=== PATIENT | female | born 1950 | race Caucasian/White ===

== ENCOUNTER 2017-04-27 09:06 | Emergency (ER) | payer MEDICARE, OTHER ==
--- NOTE | 2017-04-27 09:25 | UC ---
Cardiac HPI - HPI Summary HPI Summary: Decrease fentynl dose from topical 75 mcg to 50 mcg two days ago---today got chest pain and sob after shower "I thought I was having a heart attack" - History of Current Complaint Chief Complaint: UCChestPain Stated Complaint: REACTION TO MEDICINE,JITTERY,LIGHT-HEADED Time Seen by Provider: 04/27/17 09:13 Hx Obtained From: Patient Onset/Duration: Sudden Onset, Lasting Hours, Other Timing: Constant Initial Severity: Moderate Current Severity: Mild Chest Pain Location: Mid Sternal Character: Fast, Heaviness, Pressure/Squeezing Aggravating Factor(s): Nothing Alleviating Factor(s): Rest, Spontaneous Resolution, Other Associated Signs & Symptoms: Positive: Chest Pain, Anxiety, Recent Stress, SOB - Allergy/Home Medications Allergies/Adverse Reactions: Allergies Allergy/AdvReac Type Severity Reaction Status Date / Time Amoxicillin Allergy Intermediate unkown Verified 04/27/17 09:28 CI Pigment Blue 63 Allergy Intermediate unkown Verified 04/27/17 09:29 [From Cymbalta] Ciprofloxacin [From Cipro] Allergy Intermediate unkown Verified 04/27/17 09:28 Duloxetine [From Cymbalta] Allergy Intermediate unkown Verified 04/27/17 09:29 Escitalopram [From Lexapro] Allergy Intermediate unkown Verified 04/27/17 09:27 Naproxen [From Anaprox] Allergy Intermediate Unknown Verified 04/27/17 09:30 Reaction Details Tramadol Allergy Intermediate Unknown Verified 04/27/17 09:30 Reaction Details Home Medications: Home Medications Diclofenac Sodium EC TAB* [Voltaren EC TAB*] 25 mg PO TID PRN 04/27/17 [History Confirmed 04/27/17] Fentanyl [Duragesic] 50 mcg TD DAILY WITH MEAL 04/27/17 [History Confirmed 04/27] Hydrochlorothiazide TAB* [Hydrodiuril TAB*] 25 mg PO DAILY 04/27/17 [History Confirmed 04/27/17] Lisinopril 10 mg PO DAILY 04/27/17 [History Confirmed 04/27/17] Metformin HCl 500 mg PO BID 04/27/17 [History Confirmed 04/27/17] PMH/Surg Hx/FS Hx/Imm Hx Previously Healthy: No Endocrine History: Diabetes Cardiovascular History: Hypertension - Surgical History Surgical History: Yes Surgery Procedure, Year, and Place: LOW BACK DISC SURG..X3 - Family History Known Family History: Positive: None - Social History Occupation: Unemployed Lives: Alone Alcohol Use: None Substance Use Type: None Smoking Status (MU): Never Smoked Tobacco Review of Systems Constitutional: Negative Skin: Negative Eyes: Negative ENT: Negative Respiratory: Shortness Of Breath Cardiovascular: Chest Pain Gastrointestinal: Negative Genitourinary: Negative Motor: Negative Neurovascular: Negative Musculoskeletal: Negative Neurological: Negative Psychological: Anxious Is Patient Immunocompromised?: No All Other Systems Reviewed And Are Negative: Yes Physical Exam Triage Information Reviewed: Yes Appearance: Well-Appearing, Pain Distress, Obese Vital Signs Reviewed: Yes Eye Exam: Normal Eyes: Positive: Conjunctiva Clear ENT Exam: Normal ENT: Positive: Normal ENT inspection, Hearing grossly normal, Pharynx normal. Negative: Trismus, Muffled voice, Hoarse voice, Dental tenderness Dental Exam: Normal Neck exam: Normal Neck: Positive: Supple, Nontender Respiratory Exam: Normal Respiratory: Positive: Chest non-tender, Lungs clear, Normal breath sounds, No respiratory distress, No accessory muscle use Cardiovascular Exam: Normal Cardiovascular: Positive: RRR, No Murmur, Pulses Normal, Brisk Capillary Refill Abdominal Exam: Normal Abdomen Description: Positive: No Organomegaly, Soft, Other: - chronic abdomen pain---difuse. Negative: Nontender Bowel Sounds: Positive: Present Musculoskeletal Exam: Normal Musculoskeletal: Positive: Strength Intact, ROM Intact, No Edema Neurological Exam: Normal Neurological: Positive: Alert, Muscle Tone Normal Psychological Exam: Normal Skin Exam: Normal Diagnostics - EKG Cardiac Rate: NL Cardiac Rhythm: Sinus: Normal Ectopy: None ST Segment: Normal - Assessment/Plan Course Of Treatment: rest, ekg, asprin, [place] [facility] [place] - Clinical Impression Provider Diagnoses: Chest pain - Physician Notifications Discussed Patient Care With: Renetta Yu Time Discussed With Above Provider: 09:30 Instructed by Provider To: Transfer Discharge - Discharge Plan Condition: Guarded Disposition: [facility] Referrals: Jairon Trejo MD [Primary Care Provider] -
[2017-04-27] MEDS ORDERED: Aspirin Low Dose CHEW TAB* 81 MG PO ONE (09:27)
[2017-04-27 09:58] VITALS: BP 158/87
--- NOTE | 2017-04-29 09:07 | ED ---
Progress - Progress Note Progress Note: urine cx reveals no growth. Pt was seen for CP after lowering dose of fentanyl. She was transferred. No change in care from these results. Course/Dx - Course Course Of Treatment: rest, ekg, asprin, [place] [facility] [place] - Provider Notifications Time Discussed With Above Provider: 09:30 Instructed by Provider To: Transfer
== END 2017-04-27 09:42 | disposition short-term general hospital (02) ==
LOC: UCEAST 09:06
DX: R07.9 Chest pain, unspecified (principal); I10 Essential (primary) hypertension; E11.9 Type 2 diabetes mellitus without complications; Z79.84 Long term (current) use of oral hypoglycemic drugs
CPT/HCPCS: 93005; 99213; A9270-GY; G0463

== ENCOUNTER 2017-04-27 10:00 | Emergency (ER) | payer MEDICARE, BC ==
[2017-04-27 12:26] LABS: ABS Basophils 0 10^3/ul (0-0.2); ABS Eosinophils 0.1 10^3/ul (0-0.6); ABS Lymphocytes 1.5 10^3/ul (1.0-4.8); ABS Monocytes 0.5 10^3/ul (0-0.8); ABS Neutrophils 3.2 10^3/ul (1.5-7.7); ABS Nucleated RBC 0 10^3/ul; Eosinophil % 1.8 % (0-6); Hematocrit 41 % (35-47); Hemoglobin 13.9 g/dl (12.0-16.0); Lymphocyte % 27.9 % (25-47); Mean Corpuscular HGB Conc 34 g/dl (31-36); Mean Corpuscular Hemoglobin 29 pg (27-31); Mean Corpuscular Volume 85 fL (80-97); Mean Platelet Volume 7 um3 (7.4-10.4); Nucleated Red Blood Cells % 0.2; Platelet Count 256 10^3/ul (150-450); Red Blood Count 4.85 10^6/ul (4.0-5.4); Red Cell Distribution Width 14 % (10.5-15); White Blood Count 5.3 10^3/ul (3.5-10.8)
[2017-04-27 12:30] LABS: Urine Appearance Cloudy; Urine Blood 3+ (Negative); Urine Color Yellow; Urine Ketones Negative (Negative); Urine Protein 2+(100 mg/dL) (Negative); Urine Specific Gravity 1.019 (1.010-1.030); Urine Urobilinogen Negative (Negative)
[2017-04-27 12:41] LABS: INR 0.89 (0.77-1.02)
[2017-04-27 12:46] LABS: EGFR Non-African American 85.7 (>60)
--- NOTE | 2017-04-27 12:53 | RAD ---
INDICATION: Chest pain COMPARISON: None TECHNIQUE: An AP portable view obtained at 1226 hours is submitted. FINDINGS: Bones/Soft Tissues: There are no acute bony findings. Cardiomediastinal: The cardiomediastinal silhouette is normal. Lungs: There are no infiltrates. Pleura: There are no pleural effusions. Other: None IMPRESSION: NO ACTIVE DISEASE.
[2017-04-27 14:05] VITALS: BP 142/62
--- NOTE | 2017-04-27 14:26 | ED ---
Freida Sorensen Thomas, scribed for Kendall Wilson on 04/27/17 at 1202 . Complex/Multi-Sys Presentation - HPI Summary HPI Summary: The patient is a 66 year old female referred from urgent care and complaining of an episode of chest pain, shortness of breath, anxiety, and dizziness that began this morning and is relieved by time of evaluation in the emergency department. The patient has been on Fentanyl for the last 14 years and her dose was recently lowered by Dr. Trejo. She has chronic back pain and neck pain. The patient additionally complains of depression. The patient denies leg swelling and suicidal ideation. She denies a history of CAD and lung disease. - History Of Current Complaint Chief Complaint: EDChestPainROMI Time Seen by Provider: 04/27/17 11:13 Hx Obtained From: Patient Onset/Duration: Lasting Hours - onset this AM, Resolved Timing: Intermittent, Lasting: Aggravating Factor(s): Fentanyl dose decreased Alleviating Factor(s): Spontaneous Associated Signs And Symptoms: Positive: Other - CP, SOB, anxiety, dizziness, depression; NEGATIVE: leg swelling, suicidal ideation - Allergies/Home Medications Allergies/Adverse Reactions: Allergies Allergy/AdvReac Type Severity Reaction Status Date / Time Amoxicillin Allergy Intermediate unkown Verified 04/27/17 09:28 CI Pigment Blue 63 Allergy Intermediate unkown Verified 04/27/17 09:29 [From Cymbalta] Ciprofloxacin [From Cipro] Allergy Intermediate unkown Verified 04/27/17 09:28 Duloxetine [From Cymbalta] Allergy Intermediate unkown Verified 04/27/17 09:29 Escitalopram [From Lexapro] Allergy Intermediate unkown Verified 04/27/17 09:27 Naproxen [From Anaprox] Allergy Intermediate Unknown Verified 04/27/17 09:30 Reaction Details Tramadol Allergy Intermediate Unknown Verified 04/27/17 09:30 Reaction Details Home Medications: Home Medications ALPRAZolam TAB* [Xanax TAB*] 0.125 - 0.25 mg PO BEDTIME PRN 04/27/17 [History Confirmed 04/27/17] Albuterol HFA INHALER* [Ventolin HFA Inhaler*] 2 puff INH Q4H PRN 04/27/17 [ History Confirmed 04/27/17] Lisinopril TAB* [Prinivil TAB*] 10 mg PO DAILY 04/27/17 [History Confirmed 04/27] Ranitidine TAB (NF) [Zantac TAB (NF)] 150 mg PO BID 04/27/17 [History Confirmed 04/27/17] metFORMIN* [Glucophage 500 MG TAB *] 500 mg PO BID 04/27/17 [History Confirmed 04/27/17] PMH/Surg Hx/FS Hx/Imm Hx Previously Healthy: No Endocrine/Hematology History: Denies: Hx Diabetes, Hx Thyroid Disease Cardiovascular History: Reports: Hx Hypertension Respiratory History: Denies: Hx Asthma, Hx Chronic Obstructive Pulmonary Disease (COPD) GI History: Denies: Hx Ulcer Musculoskeletal History: Denies: Hx Rheumatoid Arthritis, Hx Osteoporosis - Cancer History Hx Chemotherapy: No Hx Radiation Therapy: No - Surgical History Surgery Procedure, Year, and Place: LOW BACK DISC SURG..X3 Infectious Disease History: No Infectious Disease History: Denies: Hx Clostridium Difficile, Hx Hepatitis, Hx Human Immunodeficiency Virus (HIV), Hx of Known/Suspected MRSA, Hx Shingles, Hx Tuberculosis, Hx Known/ Suspected VRE, Hx Known/Suspected VRSA, History Other Infectious Disease, Traveled Outside the [place] in Last 30 Days - Family History Known Family History: Positive: Other - Patient denies relevant FHx - Social History Alcohol Use: None Substance Use Type: Reports: None Smoking Status (MU): Never Smoked Tobacco Review of Systems Negative: Fever Positive: Chest Pain Positive: Shortness Of Breath Negative: Edema Neurological: Other - Dizziness Positive: Anxious, Depressed. Negative: Other - suicidal ideation All Other Systems Reviewed And Are Negative: Yes Physical Exam - Summary Physical Exam Summary: Appearance: Well appearing, no pain distress Skin: warm, dry, reflects adequate perfusion Head/face: normal Eyes: EOMI, JEZ ENT: normal Neck: supple, nontender Respiratory: CTA, breath sounds present Cardiovascular: RRR, pulses symmetrical Abdomen: nontender, soft Bowel: present Musculoskeletal: normal, strength/ROM intact Neuro: normal, sensory motor intact, A&Ox3 Psychiatric: Anxious. Triage Information Reviewed: Yes Vital Signs On Initial Exam: Initial Vitals Temp Pulse Resp BP Pulse Ox 98.8 F 73 16 143/72 95 04/27/17 10:05 04/27/17 10:05 04/27/17 10:05 04/27/17 10:05 04/27/17 10:05 Vital Signs Reviewed: Yes - Mendoza Coma Scale Coma Scale Total: 15 Diagnostics - Vital Signs Vital Signs Temp Pulse Resp BP Pulse Ox 04/27/17 10:05 98.8 F 73 16 143/72 95 - Laboratory Result Diagrams: 04/27/17 12:13 04/27/17 12:13 Lab Statement: Any lab studies that have been ordered have been reviewed, and results considered in the medical decision making process. - Radiology CXR Xray Interpretation: No Acute Changes - NO ACTIVE DISEASE. Dr. Wilson has reviewed this report. Radiology Interpretation Completed By: Radiologist - EKG 12:00 Cardiac Rate: NL EKG Rhythm: Sinus Rhythm - 65 BPM EKG Interpretation: No acute changes Complex Multi-Symp Course/Dx Assessment/Plan: Bloodwork and urinalysis were obtained. EKG shows sinus rhythm with on acute changes. CXR shows no active disease. The patient does not want to be admitted and wants to go home. The patient will be discharged home with primary care follow up. - Diagnoses Provider Diagnoses: Atypical chest pain, Anxiety, UTI (urinary tract infection) Discharge - Discharge Plan Condition: Stable Disposition: HOME Patient Education Materials: Chest Pain (ED), Anxiety (ED), Urinary Tract Infection in Women (ED) Referrals: Jairon Trejo MD [Primary Care Provider] - 1 Day Additional Instructions: Follow up as soon as possible with your primary care physician. RETURN TO THE EMERGENCY DEPARTMENT FOR ANY NEW OR WORSENING SYMPTOMS. The documentation as recorded by the Freida browne Thomas accurately reflects the service I personally performed and the decisions made by Steve andino Emmanuel.
== END 2017-04-27 14:18 | disposition home or self-care (01) ==
LOC: ED 10:00
DX: R07.89 Other chest pain (principal); F41.9 Anxiety disorder, unspecified; N39.0 Urinary tract infection, site not specified; R06.02 Shortness of breath; F32.9 Major depressive disorder, single episode, unspecified; R42 Dizziness and giddiness
CPT/HCPCS: 36415; 71045; 80053; 81003; 81015; 83605; 83735; 83880; 84484; 85025; 85379; 85610; 85730; 87086; 93005; 99282